=== PATIENT | female | born 1980 | race Caucasian/White ===

== ENCOUNTER 2025-09-08 16:12 | Inpatient (IN) ==
[2025-09-08] MEDS: 0.9 % SODIUM CHLORIDE 1,000 ML IV ONE ×3 (18:35→22:56)
[2025-09-08] MEDS: PROCHLORPERAZINE 10 MG/2 ML VIAL IV ONE ×2 (18:42→20:03)
[2025-09-08 19:04] LABS: Basophils # (Auto) 0.02 K/mcL (0.00-0.30); Basophils % (Auto) 0.7 % (0.0-2.0); Eosinophils # (Auto) 0.13 K/mcL (0.00-0.70); Eosinophils % (Auto) 4.6 % (0.0-7.0); Hematocrit 34.6 % (34.1-44.9); Hemoglobin 10.8 g/dL (11.2-15.7); Lymphocytes # (Auto) 1.64 K/mcL (1.50-4.80); Lymphocytes % (Auto) 58.2 % (15.5-49.0); Mean Corpuscular HGB Conc 31.2 g/dL (31.0-36.0); Monocytes # (Auto) 0.44 K/mcL (0.10-0.90); Monocytes % (Auto) 15.6 % (1.0-12.0); Neutrophils % (Auto) 20.9 % (38.0-78.0); Platelet Count 141 K/mcL (140-440); RBC 3.57 M/mcL (3.59-5.38); WBC 2.8 K/mcL (4.5-11.0)
[2025-09-08 19:08] LABS: ALT/SGPT 9 U/L (<40); AST/SGOT 21 U/L (<32); Albumin 3.9 gm/dL (3.2-5.2); Albumin/Globulin Ratio 1.4 (1.0-2.3); Alkaline Phosphatase 148 U/L (39-117); Anion Gap 7.0 (8.0-16.0); Bilirubin,Total 0.2 mg/dL (0.1-1.0); Blood Urea Nitrogen 10 mg/dL (6-20); Calcium 8.1 mg/dL (8.6-10.4); Carbon Dioxide 27 mmol/L (22-30); Chloride 103 mmol/L (96-108); Globulin 2.8 gm/dL (2.2-3.7); Glucose 83 mg/dL (70-105); Potassium 4.0 mmol/L (3.3-5.1); Sodium 137 mmol/L (133-145)
[2025-09-08] MEDS: PIPERACILLIN SODIUM/TAZOBACTAM 4.5 GM in DEXTROSE 5% IN WATER 50 ML IV ONE (19:48)
[2025-09-08 20:36] LABS: Bilirubin,Urine NEGATIVE (Negative); Color,Urine YELLOW; Glucose,Urine (UA) NEGATIVE (Negative); Ketones,Urine NEGATIVE (Negative); Leukocyte Esterase,Urine NEGATIVE /uL (Negative); PH,Urine 6.0 (5.0-9.0); Protein,Urine NEGATIVE (Negative); Specific Gravity,Urine >= 1.030 (1.000-1.035); Urobilinogen,Urine 1.0 mg/dL
[2025-09-08] MEDS ORDERED: POTASSIUM CHLORIDE 20 MEQ TABLET PO PRN ×2 (22:46)
[2025-09-08] MEDS ORDERED: SENNOSIDES 1 TABLET PO PRN (22:46)
[2025-09-08] MEDS ORDERED: ACETAMINOPHEN 325 MG TABLET PO PRN (22:46)
[2025-09-08] MEDS ORDERED: IPRATROPIUM/ALBUTEROL 3 ML AMPUL.NEB NEB PRN (22:46)
[2025-09-08] MEDS ORDERED: VANCOMYCIN PER PHARMACY IV SCH (22:46)
[2025-09-08] MEDS ORDERED: MAGNESIUM SULFATE 2 GM/50 ML BAG IV PRN (22:46)
[2025-09-08] MEDS ORDERED: POTASSIUM CHLORIDE 40 MEQ in DEXTROSE 5% IN WATER 500 ML IV PRN (22:46)
[2025-09-08] MEDS ORDERED: POLYETHYLENE GLYCOL 3350 17 GM PACKET PO PRN (22:46)
[2025-09-08] MEDS ORDERED: ONDANSETRON 4 MG/2 ML VIAL IV PRN (22:46)
[2025-09-08] MEDS: 0.9 % SODIUM CHLORIDE 10 ML SYRINGE IV SCH (22:57)
[2025-09-08] MEDS: METOCLOPRAMIDE 10 MG/2 ML VIAL IV PRN (23:33)
[2025-09-08] MEDS: VANCOMYCIN 1,000 MG in 0.9 % SODIUM CHLORIDE 250 ML IV ONE (23:40)
[2025-09-09] MEDS: METOCLOPRAMIDE 10 MG/2 ML VIAL ONE (00:22)
[2025-09-09] MEDS: PIPERACILLIN SODIUM/TAZOBACTAM 3.375 GM in DEXTROSE 5% IN WATER 100 ML IV SCH (01:44)
[2025-09-09 07:07] LABS: ALT/SGPT 10 U/L (<40); AST/SGOT 23 U/L (<32); Albumin 3.3 gm/dL (3.2-5.2); Albumin/Globulin Ratio 1.4 (1.0-2.3); Alkaline Phosphatase 124 U/L (39-117); Anion Gap 7.0 (8.0-16.0); Bilirubin,Direct < 0.2 mg/dL (0-0.3); Bilirubin,Total 0.2 mg/dL (0.1-1.0); Blood Urea Nitrogen 8 mg/dL (6-20); Calcium 7.2 mg/dL (8.6-10.4); Carbon Dioxide 22 mmol/L (22-30); Chloride 108 mmol/L (96-108); Globulin 2.4 gm/dL (2.2-3.7); Glucose 91 mg/dL (70-105); Phosphorous 2.9 mg/dL (2.5-4.5); Potassium 4.4 mmol/L (3.3-5.1); Sodium 137 mmol/L (133-145); Triglycerides 73 mg/dL (<150); Uric Acid 2.4 mg/dL (2.5-8.0)
[2025-09-09 07:38] LABS: Basophils # (Auto) 0.02 K/mcL (0.00-0.30); Basophils % (Auto) 0.7 % (0.0-2.0); Eosinophils # (Auto) 0.17 K/mcL (0.00-0.70); Eosinophils % (Auto) 5.9 % (0.0-7.0); Hematocrit 33.6 % (34.1-44.9); Hemoglobin 9.8 g/dL (11.2-15.7); Lymphocytes # (Auto) 1.72 K/mcL (1.50-4.80); Lymphocytes % (Auto) 60.1 % (15.5-49.0); Mean Corpuscular HGB Conc 29.2 g/dL (31.0-36.0); Monocytes # (Auto) 0.45 K/mcL (0.10-0.90); Monocytes % (Auto) 15.7 % (1.0-12.0); Neutrophils % (Auto) 17.6 % (38.0-78.0); Platelet Count 141 K/mcL (140-440); RBC 3.21 M/mcL (3.59-5.38); WBC 2.9 K/mcL (4.5-11.0)
[2025-09-09] MEDS ORDERED: ENOXAPARIN 40 MG/0.4 ML SYRINGE SQ SCH (09:00)
[2025-09-09] MEDS: VANCOMYCIN 2,000 MG in 0.9 % SODIUM CHLORIDE 500 ML IV ONE (09:03)
[2025-09-09] MEDS: morphine 15 MG TAB.SR.12H PO SCH (09:07)
[2025-09-09] MEDS: APIXABAN 5 MG TABLET PO SCH (09:07)
[2025-09-09] MEDS: PIPERACILLIN SODIUM/TAZOBACTAM 4.5 GM in DEXTROSE 5% IN WATER 100 ML IV SCH (10:57)
[2025-09-09] MEDS: DIAZEPAM 5 MG TABLET PO PRN ×2 (10:58→20:41)
[2025-09-09] MEDS ORDERED: VANCOMYCIN 2,000 MG in 0.9 % SODIUM CHLORIDE 500 ML IV SCH (21:00)
[2025-09-09] MEDS ORDERED: PRAZOSIN 1 MG CAPSULE PO PRN (21:00)
[2025-09-10] MEDS: morphine 15 MG TAB.SR.12H PO SCH (08:19)
[2025-09-10 09:28] LABS: ALT/SGPT 10 U/L (<40); AST/SGOT 19 U/L (<32); Albumin 3.2 gm/dL (3.2-5.2); Albumin/Globulin Ratio 1.4 (1.0-2.3); Alkaline Phosphatase 117 U/L (39-117); Anion Gap 5.0 (8.0-16.0); Bilirubin,Direct < 0.2 mg/dL (0-0.3); Bilirubin,Total < 0.2 mg/dL (0.1-1.0); Blood Urea Nitrogen 8 mg/dL (6-20); Calcium 7.8 mg/dL (8.6-10.4); Carbon Dioxide 27 mmol/L (22-30); Chloride 108 mmol/L (96-108); Globulin 2.3 gm/dL (2.2-3.7); Glucose 88 mg/dL (70-105); Phosphorous 2.9 mg/dL (2.5-4.5); Potassium 4.5 mmol/L (3.3-5.1); Sodium 140 mmol/L (133-145); Triglycerides 62 mg/dL (<150); Uric Acid 2.0 mg/dL (2.5-8.0)
[2025-09-10 09:38] LABS: Basophils # (Auto) 0.03 K/mcL (0.00-0.30); Basophils % (Auto) 1.4 % (0.0-2.0); Eosinophils # (Auto) 0.17 K/mcL (0.00-0.70); Eosinophils % (Auto) 7.8 % (0.0-7.0); Hematocrit 30.4 % (34.1-44.9); Hemoglobin 9.3 g/dL (11.2-15.7); Lymphocytes # (Auto) 1.26 K/mcL (1.50-4.80); Lymphocytes % (Auto) 57.5 % (15.5-49.0); Mean Corpuscular HGB Conc 30.6 g/dL (31.0-36.0); Monocytes # (Auto) 0.36 K/mcL (0.10-0.90); Monocytes % (Auto) 16.4 % (1.0-12.0); Neutrophils % (Auto) 16.4 % (38.0-78.0); Platelet Count 186 K/mcL (140-440); RBC 3.11 M/mcL (3.59-5.38); WBC 2.2 K/mcL (4.5-11.0)
[2025-09-10] MEDS: TBO-FILGRASTIM 480 MCG/0.8 ML SYRINGE SQ ONE (12:43)
[2025-09-10] MEDS: MELATONIN 3 MG TABLET PO PRN (20:05)
[2025-09-11 00:09] VITALS: TEMP 98.1
[2025-09-11 07:22] LABS: Basophils # (Auto) 0.02 K/mcL (0.00-0.30); Basophils % (Auto) 0.2 % (0.0-2.0); Eosinophils # (Auto) 0.30 K/mcL (0.00-0.70); Eosinophils % (Auto) 3.0 % (0.0-7.0); Hematocrit 34.8 % (34.1-44.9); Hemoglobin 10.7 g/dL (11.2-15.7); Lymphocytes # (Auto) 2.06 K/mcL (1.50-4.80); Lymphocytes % (Auto) 20.9 % (15.5-49.0); Mean Corpuscular HGB Conc 30.7 g/dL (31.0-36.0); Monocytes # (Auto) 0.87 K/mcL (0.10-0.90); Monocytes % (Auto) 8.8 % (1.0-12.0); Neutrophils % (Auto) 66.6 % (38.0-78.0); Platelet Count 222 K/mcL (140-440); RBC 3.53 M/mcL (3.59-5.38); WBC 9.9 K/mcL (4.5-11.0)
[2025-09-11 09:17] LABS: Hepatitis A Antibody IgM Non-Reactive (Non-Reactive); Hepatitis B Surface Antigen Negative (Negative)
[2025-09-11 15:28] VITALS: O2SAT 97
== END 2025-09-11 15:55 | disposition home or self-care (01) | DRG 810 ==
LOC: ED 16:12 → MEDSUR 22:46
PROVIDERS: ADMIT Internal Medicine; ATTEND Internal Medicine